=== PATIENT | male | born 1970 | race African-American/Black ===

== ENCOUNTER 2020-10-22 15:39 | Emergency (ER) | payer MEDICARE, OTHER | END 2020-10-22 17:05 | disposition left against medical advice (07) | LOC: CSHERS 15:39 | DX: Z53.21 Procedure and treatment not carried out due to patient leaving prior to being seen by health care provider (principal) ==

== ENCOUNTER 2021-06-14 10:39 | Emergency (ER) | payer MEDICARE, OTHER ==
[2021-06-14] MEDS ORDERED: Ketorolac Tromethamine 30 MG/ML VIAL ONE (12:19)
[2021-06-14] MEDS ORDERED: cefTRIAXone\\ROCEPHIN 500 MG VIAL ONE (12:30)
[2021-06-14] MEDS ORDERED: Lidocaine 1% (PF) 30 ML VIAL ONE (12:31)
[2021-06-14 12:59] LABS: Bilirubin Neg (Negative); Blood, Urine 10 (Negative); Clarity Slightly Cloudy (Clear); Glucose, Urine (Dipstick) Normal (Negative); Ketone, Urine Negative (Negative); Leukocyte 25 (Negative); Nitrite Negative (Negative); Protein, Urine (Dipstick) Negative (Neg-Trace); Urobilinogen Normal mg/dL (Less than 2); pH, Urine 6.5 (5.0-9.0)
[2021-06-14] MEDS ORDERED: HYDROcodone/Acetaminophen 7.5/325 mg Tablet ONE (13:18)
[2021-06-14 13:50] LABS: RBC/HPF 0-3 HPF (0-3)
[2021-06-14 13:52] LABS: Bacteria/HPF None Seen HPF (None Seen); Trichomonas/HPF 2+ HPF (None Seen)
[2021-06-15 21:42] LABS: Chlam.trachomatis by PCR,Urine Not Detected (NotDetected)
== END 2021-06-14 13:40 | disposition home or self-care (01) ==
LOC: CSHERS 10:39
DX: N45.3 Epididymo-orchitis (principal); I10 Essential (primary) hypertension; E78.5 Hyperlipidemia, unspecified; J45.909 Unspecified asthma, uncomplicated; F17.210 Nicotine dependence, cigarettes, uncomplicated
CPT/HCPCS: 76870; 81003; 81015; 87491; 87591; 93976; 96372; 96374; J0696; J1885; J2001

== ENCOUNTER 2021-08-14 11:37 | Emergency (ER) | payer MEDICARE, OTHER ==
[2021-08-14] MEDS ORDERED: Bupivacaine PF 0.5% 30 ML VIAL ONE (12:28)
[2021-08-14] MEDS ORDERED: Clindamycin 150 MG CAP ONE (12:28)
== END 2021-08-14 13:30 | disposition home or self-care (01) ==
LOC: CSHERS 11:37
DX: K02.9 Dental caries, unspecified (principal); I10 Essential (primary) hypertension; E78.5 Hyperlipidemia, unspecified; J45.909 Unspecified asthma, uncomplicated; F17.210 Nicotine dependence, cigarettes, uncomplicated
CPT/HCPCS: 64400; S0020

== ENCOUNTER 2022-08-18 08:24 | Emergency (ER) | payer OTHER ==
[2022-08-18 10:42] LABS: Bilirubin Neg (Negative); Blood, Urine 10 (Negative); Clarity Clear (Clear); Glucose, Urine (Dipstick) Normal (Negative); Ketone, Urine Negative (Negative); Leukocyte 25 (Negative); Nitrite Negative (Negative); Protein, Urine (Dipstick) 15 mg/dl (Neg-Trace)
[2022-08-18] MEDS ORDERED: Amoxicillin/Potassium Clav 875 MG TAB ONE (10:53)
[2022-08-18 11:06] LABS: Bacteria/HPF 1+ HPF (None Seen); RBC/HPF 0-3 HPF (0-3); WBC/HPF 0-3 HPF (0-3)
== END 2022-08-18 10:57 | disposition home or self-care (01) ==
LOC: CSHERS 08:24
DX: K02.9 Dental caries, unspecified (principal); E78.00 Pure hypercholesterolemia, unspecified; I10 Essential (primary) hypertension; F17.210 Nicotine dependence, cigarettes, uncomplicated
CPT/HCPCS: 41800; 81003; 81015

== ENCOUNTER 2022-09-20 07:18 | Emergency (ER) | payer OTHER ==
[2022-09-20 08:59] LABS: Bilirubin Neg (Negative); Blood, Urine Negative (Negative); Glucose, Urine (Dipstick) Normal (Negative); Ketone, Urine Negative (Negative); Leukocyte 25 (Negative); Nitrite Negative (Negative); Protein, Urine (Dipstick) Negative (Neg-Trace)
[2022-09-20 09:08] LABS: Clarity Hazy (Clear)
[2022-09-20 09:13] LABS: RBC/HPF 0-3 HPF (0-3); Squamous Epithelial 0-3 HPF (0-3); WBC/HPF 0-3 HPF (0-3)
[2022-09-20 09:14] LABS: Bacteria/HPF None Seen HPF (None Seen)
[2022-09-20] MEDS ORDERED: cefTRIAXone (ROCEPHIN) 500 MG VIAL ONE (09:50)
[2022-09-20] MEDS ORDERED: Sterile Water 10 ML ONE (09:51)
[2022-09-20 22:15] LABS: Chlam.trachomatis by PCR,Urine Not Detected (NotDetected); GC N.gonorrhoeae PCR,UrineVOID Not Detected (NotDetected)
== END 2022-09-20 10:05 | disposition home or self-care (01) ==
LOC: CSHERS 07:18
DX: N45.1 Epididymitis (principal); I10 Essential (primary) hypertension; E78.00 Pure hypercholesterolemia, unspecified; F17.210 Nicotine dependence, cigarettes, uncomplicated
CPT/HCPCS: 76870; 81003; 81015; 87086; 87491; 87591; 93976; 96372; J0696

== ENCOUNTER 2022-10-16 00:18 | Emergency (ER) | payer OTHER | END 2022-10-16 01:03 | disposition home or self-care (01) | LOC: CSHERS 00:18 | DX: K04.7 Periapical abscess without sinus (principal); I10 Essential (primary) hypertension; E78.00 Pure hypercholesterolemia, unspecified; F17.210 Nicotine dependence, cigarettes, uncomplicated | CPT/HCPCS: 99282 ==

== ENCOUNTER 2022-12-07 11:42 | Emergency (ER) | payer OTHER ==
[2022-12-07] MEDS ORDERED: Acetaminophen 500 MG TAB ONE (12:37)
[2022-12-07] MEDS ORDERED: Morphine 4 MG/ML VIAL ONE (12:38)
[2022-12-07] MEDS ORDERED: Ketorolac Tromethamine 30 MG/ML VIAL ONE (12:38)
== END 2022-12-07 13:34 | disposition home or self-care (01) ==
LOC: CSHERS 11:42
DX: M54.50 Low back pain, unspecified (principal); I10 Essential (primary) hypertension; E78.00 Pure hypercholesterolemia, unspecified; F17.210 Nicotine dependence, cigarettes, uncomplicated; J45.909 Unspecified asthma, uncomplicated
CPT/HCPCS: 96372; J1885; J2270

== ENCOUNTER 2023-01-31 07:49 | Emergency (ER) | payer OTHER ==
[2023-01-31] MEDS ORDERED: Lorazepam 2 MG/ML VIAL ONE (08:35)
[2023-01-31 09:00] LABS: #Monocytes 0.9 10x3/uL (0.0-1.1); #Neutrophils 7.4 10x3/uL (1.5-8.4); %Basophils 0.3 % (0.0-2.0); %Eosinophils 0.4 % (0.0-6.0); %Lymphocytes 16.3 % (18.0-47.0); %Monocytes 8.7 % (0.0-10.0); %Neutrophils 73.9 % (40.0-75.0); Hematocrit 37.9 % (38.8-50.0); Hemoglobin 12.8 g/dL (13.5-17.5); Mean Corpuscular HGB CONC 33.8 g/dL (32.0-36.0); Mean Corpuscular Hemoglobin 28.5 pg (27.0-33.0); Mean Corpuscular Volume 84.4 fl (81.2-95.1); Mean Platelet Volume 9.7 fl (7.4-10.4); Platelet Count 236 10x3/uL (150-450); RBC Distribution Width 14.7 % (11.5-14.5); Red Blood Cell (RBC) Count 4.49 10x6/uL (4.32-5.72)
[2023-01-31 09:06] LABS: Acetaminophen Less than 10 mcg/mL (10.0-30.0); Alcohol 36.3 mg/dL (Less than 10); Salicylate Less than 8.0 mg/dL (15.0-30.0)
[2023-01-31 09:08] LABS: ALT (SGPT) 12 U/L (8-55); AST (SGOT) 20 U/L (5-34); Albumin 4.3 g/dL (3.5-5.0); Alkaline Phosphatase 55 U/L (40-110); Anion Gap 17 mmol/L (10-20); BUN (Urea Nitrogen) 7 mg/dL (8.4-25.7); Bilirubin, Total 0.2 mg/dL (0.2-1.2); CK (CPK) 186 U/L (30-200); Calc. Creatinine Clearance 0 mL/min (70-130); Calcium 9.2 mg/dL (7.8-10.44); Carbon Dioxide 19 mmol/L (22-29); Chloride 108 mmol/L (98-107); Estimated GFR 107; Globulin 2.6 g/dL (2.4-3.5); Glucose 109 mg/dL (70-105); Protein, Total 6.9 g/dL (6.0-8.3); Sodium 140 mmol/L (136-145)
[2023-01-31 09:36] LABS: Amphetamine Not Detected (NotDetected); Barbiturates Screen Not Detected (NotDetected); Benzodiazepine Screen Not Detected (NotDetected); Cocaine Metabolite Screen Detected (NotDetected); Methadone Not Detected (NotDetected); Methamphetamine Not Detected (NotDetected); Opiate Screen Not Detected (NotDetected); Oxycodone Screen Not Detected (NotDetected); Phencyclidine (PCP) Not Detected (NotDetected); THC/Cannabinoid Screen Not Detected (NotDetected); Tricyclic Screen Not Detected (NotDetected)
== END 2023-01-31 14:57 ==
LOC: CSHERS 07:49
DX: F19.10 Other psychoactive substance abuse, uncomplicated (principal); I10 Essential (primary) hypertension; E78.00 Pure hypercholesterolemia, unspecified; J45.909 Unspecified asthma, uncomplicated; F17.210 Nicotine dependence, cigarettes, uncomplicated
CPT/HCPCS: 80053; 80306; 80307; 82550; 84484; 85025; 93005; 96374; J2060

== ENCOUNTER 2023-03-29 09:42 | Emergency (ER) | payer OTHER, MEDICAID ==
[2023-03-29 11:07] LABS: #Eosinphils 0.1 10x3/uL (0.0-0.5); #Monocytes 0.5 10x3/uL (0.0-1.1); #Neutrophils 2.3 10x3/uL (1.5-8.4); %Basophils 0.6 % (0.0-2.0); %Eosinophils 1.5 % (0.0-6.0); %Lymphocytes 38.3 % (18.0-47.0); %Monocytes 10.5 % (0.0-10.0); %Neutrophils 48.9 % (40.0-75.0); Hematocrit 38.4 % (38.8-50.0); Hemoglobin 12.9 g/dL (13.5-17.5); Mean Corpuscular HGB CONC 33.6 g/dL (32.0-36.0); Mean Corpuscular Hemoglobin 29.1 pg (27.0-33.0); Mean Corpuscular Volume 86.7 fl (81.2-95.1); Mean Platelet Volume 9.8 fl (7.4-10.4); Platelet Count 240 10x3/uL (150-450); RBC Distribution Width 15.9 % (11.5-14.5); Red Blood Cell (RBC) Count 4.43 10x6/uL (4.32-5.72); White Blood Cell (WBC) Count 4.7 10x3/uL (3.5-10.5)
[2023-03-29 11:16] LABS: Acetaminophen Less than 10 mcg/mL (10.0-30.0); Alcohol Less than 10.0 mg/dL (Less than 10); Salicylate Less than 8.0 mg/dL (15.0-30.0)
[2023-03-29 11:17] LABS: ALT (SGPT) 16 U/L (8-55); AST (SGOT) 26 U/L (5-34); Alkaline Phosphatase 53 U/L (40-110); Anion Gap 11 mmol/L (10-20); BUN (Urea Nitrogen) 10 mg/dL (8.4-25.7); Bilirubin, Total 0.4 mg/dL (0.2-1.2); Calc. Creatinine Clearance 0 mL/min (70-130); Calcium 8.7 mg/dL (7.8-10.44); Carbon Dioxide 21 mmol/L (22-29); Chloride 111 mmol/L (98-107); Estimated GFR 108; Globulin 2.2 g/dL (2.4-3.5); Glucose 114 mg/dL (70-105); Potassium 4.2 mmol/L (3.5-5.1); Protein, Total 6.2 g/dL (6.0-8.3); Sodium 139 mmol/L (136-145)
[2023-03-29 11:39] LABS: Amphetamine Not Detected (NotDetected); Barbiturates Screen Not Detected (NotDetected); Benzodiazepine Screen Not Detected (NotDetected); Cocaine Metabolite Screen Detected (NotDetected); Methadone Not Detected (NotDetected); Methamphetamine Not Detected (NotDetected); Opiate Screen Not Detected (NotDetected); Oxycodone Screen Not Detected (NotDetected); Phencyclidine (PCP) Not Detected (NotDetected); THC/Cannabinoid Screen Detected (NotDetected); Tricyclic Screen Not Detected (NotDetected)
== END 2023-03-29 15:20 | disposition home or self-care (01) ==
LOC: CSHERS 09:42
DX: S00.90XA Unspecified superficial injury of unspecified part of head, initial encounter (principal); F32.A Depression, unspecified; F14.10 Cocaine abuse, uncomplicated; E78.00 Pure hypercholesterolemia, unspecified; I10 Essential (primary) hypertension; F17.210 Nicotine dependence, cigarettes, uncomplicated; W22.8XXA Striking against or struck by other objects, initial encounter
CPT/HCPCS: 36415; 70450; 80053; 80306; 80307; 85025

== ENCOUNTER 2024-05-14 11:00 | Emergency (ER) | payer MEDICARE, OTHER ==
[2024-05-14] MEDS ORDERED: Morphine 4 MG/ML VIAL ONE (11:32)
[2024-05-14] MEDS ORDERED: Acetaminophen 325 MG TAB ONE (11:32)
[2024-05-14] MEDS ORDERED: Ondansetron PF 4 MG/2 ML Vial ONE (11:32)
[2024-05-14] MEDS ORDERED: Dexamethasone 10 MG/ML VIAL ONE (11:32)
[2024-05-14 11:42] LABS: #Basophils 0.02 10x3/uL (0.0-0.2); #Eosinophils 0.05 10x3/uL (0.0-0.5); #Monocytes 0.52 10x3/uL (0.0-1.1); #Neutrophils 2.76 10x3/uL (1.5-8.4); %Basophils 0.3 % (0.0-2.0); %Eosinophils 0.9 % (0.0-6.0); %Lymphocytes 42.4 % (18.0-47.0); %Monocytes 8.9 % (0.0-10.0); %Neutrophils 47.2 % (40.0-75.0); Hemoglobin 13.1 g/dL (13.5-17.5); Mean Corpuscular HGB CONC 33.6 g/dL (32.0-36.0); Mean Corpuscular Hemoglobin 28.8 pg (27.0-33.0); Mean Corpuscular Volume 85.7 fL (81.2-95.1); Mean Platelet Volume 9.1 fL (7.4-10.4); Platelet Count 254 10x3/uL (150-450); RBC Distribution Width 14.5 % (11.5-14.5); Red Blood Cell (RBC) Count 4.55 10x6/uL (4.32-5.72); White Blood Cell (WBC) Count 5.9 10x3/uL (3.5-10.5)
[2024-05-14 12:14] LABS: ALT (SGPT) 32 U/L (8-55); AST (SGOT) 47 U/L (5-34); Albumin 3.8 g/dL (3.5-5.0); Alkaline Phosphatase 49 U/L (40-110); Anion Gap 13 mmol/L (10-20); BUN (Urea Nitrogen) 7 mg/dL (8.4-25.7); Bilirubin, Total 0.4 mg/dL (0.2-1.2); Calc. Creatinine Clearance 0 mL/min (70-130); Calcium 9.3 mg/dL (7.8-10.44); Carbon Dioxide 22 mmol/L (22-29); Chloride 106 mmol/L (98-107); Estimated GFR 107; Globulin 2.6 g/dL (2.4-3.5); Glucose 97 mg/dL (70-105); Potassium 3.8 mmol/L (3.5-5.1); Protein, Total 6.4 g/dL (6.0-8.3); Sodium 137 mmol/L (136-145)
[2024-05-14 12:19] LABS: Troponin I Less than 0.010 ng/mL (< 0.028)
[2024-05-14] MEDS ORDERED: Methocarbamol 1 GM (10 mL) VIAL SLOW IVP SCH (12:30)
== END 2024-05-14 13:40 | disposition home or self-care (01) ==
LOC: CSHERS 11:00
DX: M54.41 Lumbago with sciatica, right side (principal); R07.2 Precordial pain; I10 Essential (primary) hypertension; F17.210 Nicotine dependence, cigarettes, uncomplicated
CPT/HCPCS: 71045; 80053; 84484; 85025; 85379; J1100; J2272; J2405; J2800; 36415; 96374; 96375

== ENCOUNTER 2024-06-10 00:37 | Emergency (ER) | payer MEDICARE, OTHER ==
[2024-06-10 00:54] LABS: Bilirubin Neg (Negative); Blood, Urine Negative (Negative); Clarity Clear (Clear); Glucose, Urine (Dipstick) Normal (Negative); Ketone, Urine Negative (Negative); Leukocyte Negative (Negative); Nitrite Negative (Negative); Protein, Urine (Dipstick) Negative (Neg-Trace); Specific Gravity, Urine 1.005 (1.005-1.030); Urobilinogen Normal mg/dL (Less than 2)
[2024-06-10 01:02] LABS: Bacteria/HPF Rare-Few HPF (None Seen); CAUTI Indications for Culture Alt mental st,lethar; RBC/HPF 0-3 HPF (0-3); Squamous Epithelial 0-3 HPF (0-3); WBC/HPF 0-3 HPF (0-3)
[2024-06-10 01:03] LABS: Amphetamine Not Detected (NotDetected); Barbiturates Screen Not Detected (NotDetected); Benzodiazepine Screen Not Detected (NotDetected); Cocaine Metabolite Screen Detected (NotDetected); Methadone Not Detected (NotDetected); Methamphetamine Not Detected (NotDetected); Opiate Screen Not Detected (NotDetected); Oxycodone Screen Not Detected (NotDetected); Phencyclidine (PCP) Not Detected (NotDetected); THC/Cannabinoid Screen Not Detected (NotDetected); Tricyclic Screen Not Detected (NotDetected); Urine Culture Reflex No No
[2024-06-10 01:13] LABS: Hematocrit 39.4 % (38.8-50.0); Hemoglobin 13.6 g/dL (13.5-17.5); Mean Corpuscular HGB CONC 34.5 g/dL (32.0-36.0); Mean Corpuscular Hemoglobin 29.5 pg (27.0-33.0); Mean Corpuscular Volume 85.5 fL (81.2-95.1); Mean Platelet Volume 9.1 fL (7.4-10.4); Platelet Count 241 10x3/uL (150-450); RBC Distribution Width 14.2 % (11.5-14.5); Red Blood Cell (RBC) Count 4.61 10x6/uL (4.32-5.72); White Blood Cell (WBC) Count 7.8 10x3/uL (3.5-10.5)
[2024-06-10 01:22] LABS: Acetaminophen Less than 10 mcg/mL (Less than 10); Alcohol 73.3 mg/dL (Less than 10); Salicylate Less than 8.0 mg/dL (Less than 8.0)
[2024-06-10 01:23] LABS: ALT (SGPT) 17 U/L (8-55); AST (SGOT) 32 U/L (5-34); Alcohol 73.8 mg/dL (Less than 10); Alkaline Phosphatase 61 U/L (40-110); Anion Gap 16 mmol/L (10-20); BUN (Urea Nitrogen) 8 mg/dL (8.4-25.7); Bilirubin, Total 0.2 mg/dL (0.2-1.2); Calc. Creatinine Clearance 0 mL/min (70-130); Calcium 9.6 mg/dL (7.8-10.44); Carbon Dioxide 19 mmol/L (22-29); Chloride 109 mmol/L (98-107); Estimated GFR 98; Globulin 2.8 g/dL (2.4-3.5); Glucose 102 mg/dL (70-105); Potassium 3.8 mmol/L (3.5-5.1); Protein, Total 6.8 g/dL (6.0-8.3); Sodium 140 mmol/L (136-145)
[2024-06-10 01:29] LABS: Troponin I Less than 0.010 ng/mL (< 0.028)
[2024-06-10 01:38] LABS: MDiff Complete? YES
[2024-06-10 01:42] LABS: Eosinophils 1 % (0-10); Lymphocytes 27 % (21-51); Monocytes 7 % (0-10); Neutrophil 56 % (42-75); Reactive Lymphocytes 9 % (0-10)
[2024-06-10 01:43] LABS: Platelet Adequacy Comment Appears Adequate; RBC Morph Comment Within Normal Limits
== END 2024-06-10 07:03 ==
LOC: CSHERS 00:37
DX: F10.10 Alcohol abuse, uncomplicated (principal); R45.851 Suicidal ideations; I10 Essential (primary) hypertension; E11.9 Type 2 diabetes mellitus without complications; F17.210 Nicotine dependence, cigarettes, uncomplicated; Y90.3 Blood alcohol level of 60-79 mg/100 ml
CPT/HCPCS: 36416; 80053; 80306; 80307; 81001; 84484; 85025; 93005; 99285

== ENCOUNTER 2024-08-16 09:13 | Emergency (ER) | payer MEDICARE, OTHER ==
[2024-08-16] MEDS ORDERED: Ondansetron PF 4 MG/2 ML Vial ONE (09:21)
[2024-08-16] MEDS ORDERED: Dexamethasone 10 MG/ML VIAL ONE (09:21)
[2024-08-16] MEDS ORDERED: Cyclobenzaprine 10 MG TAB ONE (09:22)
[2024-08-16] MEDS ORDERED: Morphine 2 MG/ML VIAL ONE (09:22)
[2024-08-16] MEDS ORDERED: Ketorolac Tromethamine 30 MG (1 mL) VIAL ONE (09:22)
[2024-08-16] MEDS ORDERED: Acetaminophen 325 MG TAB ONE (09:23)
[2024-08-16 09:43] LABS: #Basophils Less than 0.03 10x3/uL (0.0-0.2); #Eosinophils 0.14 10x3/uL (0.0-0.5); #Monocytes 0.44 10x3/uL (0.0-1.1); #Neutrophils 2.75 10x3/uL (1.5-8.4); %Basophils 0.4 % (0.0-2.0); %Eosinophils 2.5 % (0.0-6.0); %Lymphocytes 40.4 % (18.0-47.0); %Monocytes 7.8 % (0.0-10.0); %Neutrophils 48.5 % (40.0-75.0); Hematocrit 40.3 % (38.8-50.0); Hemoglobin 13.2 g/dL (13.5-17.5); Mean Corpuscular HGB CONC 32.8 g/dL (32.0-36.0); Mean Corpuscular Hemoglobin 28.9 pg (27.0-33.0); Mean Corpuscular Volume 88.2 fL (81.2-95.1); Mean Platelet Volume 9.5 fL (7.4-10.4); Platelet Count 230 10x3/uL (150-450); RBC Distribution Width 15.9 % (11.5-14.5); Red Blood Cell (RBC) Count 4.57 10x6/uL (4.32-5.72); White Blood Cell (WBC) Count 5.65 10x3/uL (3.5-10.5)
[2024-08-16 10:00] LABS: ALT (SGPT) 11 U/L (Less than 45); AST (SGOT) 16 U/L (11-34); Albumin 3.8 g/dL (3.1-4.5); Alkaline Phosphatase 65 U/L (40-110); Anion Gap 9 mmol/L (10-20); BUN (Urea Nitrogen) 7 mg/dL (8.4-25.7); Bilirubin, Total 0.2 mg/dL (0.3-1.2); Calc. Creatinine Clearance 0 mL/min (70-130); Calcium 8.6 mg/dL (7.8-10.44); Carbon Dioxide 22 mmol/L (22-29); Chloride 112 mmol/L (98-107); Estimated GFR 114; Globulin 2.6 g/dL (2.4-3.5); Glucose 121 mg/dL (70-105); Lipase 33 U/L (8-78); Protein, Total 6.4 g/dL (6.0-8.3); Sodium 139 mmol/L (136-145)
[2024-08-16 11:37] LABS: Bilirubin Neg (Negative); Blood, Urine 10 (Negative); Clarity Cloudy (Clear); Glucose, Urine (Dipstick) Normal (Negative); Ketone, Urine Negative (Negative); Leukocyte 100 (Negative); Nitrite Positive (Negative); Protein, Urine (Dipstick) 30 mg/dl (Neg-Trace); Specific Gravity, Urine 1.015 (1.005-1.030); Urobilinogen Normal mg/dL (Less than 2)
[2024-08-16 11:57] LABS: Bacteria/HPF 4+ HPF (None Seen); CAUTI Indications for Culture Pregnancy; Calcium Oxalate Crystals 1+ HPF (None Seen); RBC/HPF 0-3 HPF (0-3)
[2024-08-16 11:58] LABS: Urine Culture Reflex Yes Yes
[2024-08-16] MEDS ORDERED: cefTRIAXone (ROCEPHIN) 1 GM VIAL ONE (12:06)
[2024-08-16] MEDS ORDERED: Iopamidol 300 61% 100 ML VIAL FS ONE (13:49)
== END 2024-08-16 13:05 | disposition home or self-care (01) ==
LOC: CSHERS 09:13
DX: M54.50 Low back pain, unspecified (principal); N39.0 Urinary tract infection, site not specified; I10 Essential (primary) hypertension; E11.9 Type 2 diabetes mellitus without complications; F17.210 Nicotine dependence, cigarettes, uncomplicated
CPT/HCPCS: 74177; 80053; 81001; 83690; 85025; 87077; 87086; 87186; 93005; J0696; J1100; J1885; J2272; J2405; Q9967; 36415; 96374; 96375